=== PATIENT | male | born 1970 | race Caucasian/White ===

== ENCOUNTER → 2017-07-03 14:43 | Outpatient (REF) | payer MEDICAID, SELFPAY ==
[2017-07-03 18:31] LABS: Basophils # 0.1 K/mm3 (0-0.2); Basophils % 0.6 % (0.1-2.0); Eosinophils # 0.2 K/mm3 (0.0-0.4); Eosinophils % 1.1 % (0.1-12.0); Hematocrit 49.9 % (42.0-52.0); Hemoglobin 15.7 g/dL (14.1-18.0); Lymphocytes # 2.5 K/mm3 (0.7-4.5); Lymphocytes % 15.9 K/mm3 (10-50); Mean Corpuscular HGB Conc 31.5 g/dL (31.8-35.4); Mean Platelet Volume 9.5 fl (7.4-10.4); Monocytes # 0.8 K/mm3 (0.1-1.0); Monocytes % 5.4 % (1.7-9.3); Platelet Count 251 K/mm3 (142-424); Red Blood Count 5.25 M/mm3 (4.60-6.20); Red Cell Distribution Width 13.8 % (11.5-17.5); White Blood Count 15.6 K/mm3 (4.8-10.8)
[2017-07-03 18:37] LABS: MANUAL DIFFERENTIAL MANUAL DIFFERENTIAL (MANUAL DIFF)
[2017-07-03 19:03] LABS: Eosinophils % 4 % (0-3); Lymphocytes % 16 % (10-50); Monocytes % 4 % (2-9); Neutrophils % 75 % (42-76); Platelet Estimate Normal; Total Cells Counted 100
[2017-07-03 19:04] LABS: RBC Morphology Normal
[2017-07-03 19:13] LABS: Alanine Aminotransferase 71 U/L (12-78); Albumin/Globulin Ratio 1.1 (1.1-1.8); Alkaline Phosphatase 114 U/L (46-116); Anion Gap 14.9 mEq/L (5-15); Aspartate Amino Transferase 31 U/L (15-37); Bilirubin,Total 0.2 mg/dL (0.2-1.0); Blood Urea Nitrogen 15 mg/dL (7-18); Calcium 9.4 mg/dL (8.5-10.1); Carbon Dioxide 25 mmol/L (21.0-32.0); Chloride 106 mmol/L (98-107); Chol/HDL Ratio 5.6 (1-3.5); Cholesterol 262 mg/dL (140-200); Creatinine,Serum 1.04 mg/dL (0.70-1.30); Estimated Glomerular Filt Rate 77 ml/min (>60); Free T4 (Free Thyroxine) 1.06 ng/dl (0.76-1.46); GFR (African American) 93 ML/MIN (>60); Globulin 3.5 gm/dl (1.3-3.2); Glucose 85 mg/dL (74-106); HDL Cholesterol 47 mg/dL (27-67); LDL Cholesterol 184 mg/dL (0-130); Potassium 4.9 mmoL/L (3.5-5.1); Sodium 141 mmol/L (136-145); Thyroid Stimulating Hormone 3.52 uIU/ml (0.358-3.740); Total Protein,Serum 7.5 gm/dL (6.4-8.2); Triglycerides 153 mg/dL (30-200); VLDL Cholesterol 31 mg/dL (0-40)
[2017-07-06 12:49] LABS: Vitamin D 25 Hydroxy 16.5 ng/mL (30.0-100.0)
== END ==
LOC: LAB 14:43
PROVIDERS: Visit Provider Emergency Medicine
DX: I10 Essential (primary) hypertension (principal)
CPT/HCPCS: 80053; 80061; 82652; 84439; 84443; 85007; 85025

== ENCOUNTER → 2019-01-13 17:06 | Outpatient (CLI) | payer MEDICAID, SELFPAY ==
[2019-01-13 17:53] LABS: Basophils # 0.1 K/mm3 (0-0.2); Basophils % 0.9 % (0.1-2.0); Eosinophils # 0.4 K/mm3 (0.0-0.4); Eosinophils % 4.4 % (0.1-12.0); Hemoglobin 15.7 g/dL (14.1-18.0); Lymphocytes # 3.5 K/mm3 (0.7-4.5); Lymphocytes % 38.3 % (10-50); Mean Corpuscular Hemoglobin 30.9 pg (27.0-31.2); Mean Corpuscular Volume 96.4 fl (80-94); Mean Platelet Volume 10.2 fl (7.4-10.4); Monocytes # 0.5 K/mm3 (0.1-1.0); Monocytes % 5.5 % (1.7-9.3); Neutrophils # 4.7 K/mm3 (1.8-7.8); Neutrophils % 50.9 % (37.0-80.0); Platelet Count 250 K/mm3 (142-424); Red Blood Count 5.09 M/mm3 (4.60-6.20); Red Cell Distribution Width 13.3 % (11.5-17.5); White Blood Count 9.2 K/mm3 (4.8-10.8)
[2019-01-13 18:24] LABS: Alanine Aminotransferase 19 U/L (12-78); Albumin Level 3.8 gm/dL (3.4-5.0); Albumin/Globulin Ratio 1.1 (1.1-1.8); Alkaline Phosphatase 84 U/L (46-116); Bilirubin,Total 0.3 mg/dL (0.2-1.0); Blood Urea Nitrogen 15 mg/dL (7-18); Calcium 8.9 mg/dL (8.5-10.1); Carbon Dioxide 21 mmol/L (21.0-32.0); Chloride 104 mmol/L (98-107); Chol/HDL Ratio 4.1 (1-3.5); Cholesterol 153 mg/dL (140-200); Creatinine,Serum 1.06 mg/dL (0.70-1.30); Estimated Glomerular Filt Rate 74 ml/min (>60); GFR (African American) 90 ML/MIN (>60); Globulin 3.4 gm/dl (1.3-3.2); Glucose 113 mg/dL (74-106); HDL Cholesterol 37 mg/dL (27-67); LDL Cholesterol 85 mg/dL (0-130); Sodium 138 mmol/L (136-145); T4 (Thyroxine) 9.2 ug/dl (4.7-13.3); Thyroid Stimulating Hormone 4.36 uIU/ml (0.358-3.740); Total Protein,Serum 7.2 gm/dL (6.4-8.2); Triglycerides 157 mg/dL (30-200); VLDL Cholesterol 31 mg/dL (0-40)
[2019-01-13 18:39] LABS: Aspartate Amino Transferase 13 U/L (15-37)
[2019-01-13 19:40] LABS: Amphetamine/Metha Screen,Urine Negative ng/mL (<1000); Barbiturates Screen,Urine Negative ng/mL (<200); Benzodiazepines Screen,Urine Negative ng/mL (<200); Cannabinoid Screen,Urine Negative ng/mL (<50); Cocaine Screen,Urine Negative ng/mL (<300); Methadone Screen,Urine Negative ng/mL (<300); Opiate Screen,Urine Negative ng/mL (<300); Phencyclidine Screen,Urine Negative ng/mL (<25)
[2019-01-16 11:06] LABS: Vitamin D 25 Hydroxy 24.6 ng/mL (30.0-100.0)
== END ==
PROVIDERS: Visit Provider Nurse Practitioner Family
DX: I10 Essential (primary) hypertension (principal); E55.9 Vitamin D deficiency, unspecified; E78.5 Hyperlipidemia, unspecified; R51 Headache; R05 Cough; F17.200 Nicotine dependence, unspecified, uncomplicated
CPT/HCPCS: 80053; 80061; 80305; 82652; 84436; 84443; 85025

== ENCOUNTER → 2019-02-17 11:48 | Outpatient (CLI) | payer MEDICAID, SELFPAY ==
--- NOTE | 2019-02-17 11:54 | XR_ITS ---
PROCEDURE: XR THORACIC SPINE 3V CLINICAL INDICATION: pain Back pain COMPARISON: [facility]SP THORACIC SPINE-3V SWIMMERS from 05/21/2013 FINDINGS: There is minimal thoracic curvature convex right. Chronic wedge compression changes are present at L1 with kyphosis at T12-L1 and degenerative disc disease at that level. There is mild lordosis of the lower thoracic spine. IMPRESSION: No acute findings. Chronic wedge compression deformity at L1 with degenerative disc disease and kyphosis at T12-L1 Dictated by: Brian Frye MD 02/17/2019 15:22 Electronically signed by Brian Frye MD in [facility] 02/17/2019 15:22
--- NOTE | 2019-02-17 11:54 | XR_ITS ---
PROCEDURE: XR CERVICAL SPINE 2V CLINICAL INDICATION: pain Chronic neck pain COMPARISON: No exams were available for comparison FINDINGS: No fracture, dislocation, lytic change, or blastic change evident. There is normal alignment. No acute fracture or dislocation evident. There is mild degenerative disc disease at C6-C7 with slight decrease in the disc space. Nuchal ligament calcification is present at the C5 region. IMPRESSION: Mild degenerative disc disease C6-C7 Dictated by: Brian Frye MD 02/17/2019 15:21 Electronically signed by Brian Frye MD in [facility] 02/17/2019 15:21
--- NOTE | 2019-02-17 11:54 | XR_ITS ---
PROCEDURE: XR CHEST 2V CLINICAL HISTORY: smoker Chest pain, smoker, COMPARISON: CXR CHEST(2 VIEWS-NOT PORTABLE) from 04/23/2013 CXR CHEST(2 VIEWS-NOT PORTABLE) from 05/21/2013 FINDINGS: The cardiomediastinal silhouette and pulmonary vascularity are within normal limits. There is some mild hyperinflation. The pulmonary arteries are prominent. Pulmonary arterial hypertension is considered. No lobar consolidation or collapse. Mild kyphosis noted in the lower thoracic spine. There is chronic wedging of L1. IMPRESSION: Prominent pulmonary vessels suggesting pulmonary arterial hypertension. Otherwise negative Dictated by: Brian Frye MD 02/17/2019 15:01 Electronically signed by Brian Frye MD in [facility] 02/17/2019 15:01
--- NOTE | 2019-02-17 11:54 | XR_ITS ---
PROCEDURE: XR LUMBAR SPINE 2-3V CLINICAL INDICATION: pain Low back pain COMPARISON: No exams were available for comparison FINDINGS: Chronic wedge compression fracture is noted at L1 with loss of height anteriorly of greater than 50 percent. Kyphosis is present at T12-L1 with anterior bridging osteophyte. There is mild degenerative disc disease at L1-L2. Generalized vascular calcification is present. IMPRESSION: Chronic wedge compression change of L1 with kyphosis at T12-L1 Dictated by: Brian Frye MD 02/17/2019 15:24 Electronically signed by Brian Frye MD in [facility] 02/17/2019 15:24
[2019-02-17 14:04] LABS: Hemoglobin A1C 5.6 % (0.0-7.0)
[2019-02-17 15:50] LABS: Thyroid Stimulating Hormone 4.48 uIU/ml (0.358-3.740)
== END ==
PROVIDERS: PCP Emergency Medicine; Visit Provider Nurse Practitioner Family
DX: R05 Cough (principal); M54.2 Cervicalgia; M54.9 Dorsalgia, unspecified; R79.89 Other specified abnormal findings of blood chemistry; R73.09 Other abnormal glucose; F17.200 Nicotine dependence, unspecified, uncomplicated
CPT/HCPCS: 36415; 71046; 72040; 72072; 72100; 83036; 84443